=== PATIENT | female | born 2000 | race Two or more races ===

== ENCOUNTER 2025-04-04 00:15 | Emergency (ER) | payer MEDICAID ==
[~2025-04-04] VITALS: Ht 162.6 cm; Wt 57.7 kg
[2025-04-04 00:22] VITALS: TEMP 98.1
[2025-04-04 02:27] LABS: PLATELET COUNT (AUTO) 300 K/uL (150-450); RED BLOOD CELL COUNT(AUTO) 4.06 MIL/uL (4.00-5.20); RED CELL DISTRIBUTION WIDTH 13.9 % (11.5-14.5); WHITE BLOOD COUNT (AUTO) 9.3 K/uL (4.5-11.0)
[2025-04-04] MEDS: SODIUM CHLORIDE 0.9% 1,000 ML IV ONE (02:33)
[2025-04-04 04:40] VITALS: BP 106/55; PULSE 75; RESP 18; O2SAT 100
== END 2025-04-04 06:26 | disposition home or self-care (01) ==
LOC: EMS 00:15
DX: O20.9 Hemorrhage in early pregnancy, unspecified (principal); N89.8 Other specified noninflammatory disorders of vagina; Z3A.01 Less than 8 weeks gestation of pregnancy
CPT/HCPCS: 99284; 96360; 76801; 96361; 84702; 85025; 86901; 36415; J7030